=== PATIENT | male | born 1980 | race Caucasian/White ===

== ENCOUNTER → 2019-03-28 | Day surgery (SDC) | payer BC ==
[~2019-03-28] MED LIST: BACITRACIN 50,000 UNIT VIAL ONE; DEXAMETHASONE SOD PHOS INJ 4 MG/ML VIAL ONE; FENTANYL CITRATE/PF 100MCG/2 ML INJ ONE; HYDROMORPHONE 2MG/ML 2 MG/ML ML ONE; INSULIN REGULAR, HUMAN 100 UNIT/1 ML 3ML VIAL ONE; LIDOCAINE HCL 2% LOCAL INJ 5 ML SDV VIAL INJ ONE; LOSARTAN PO; MIDAZOLAM HCL 2 MG/2 ML VIAL ONE; MUPIROCIN 2% OINT 22 GM TUBE ONE; ONDANSETRON HCL INJ 2MG/ML 2ML 2 MG/ML VIAL ONE; OZEMPIC SC; PROMETHAZINE HCL (IM) 25 MG/ML VIAL ONE; PROPOFOL IV EMULSION 10 MG/ML 20 ML VIAL ONE; SEVOFLURANE INHAL SOLN 250 ML PEN BTL ONE; VANCOMYCIN 1GM/NS 250 ML 250 ML ONE; XIGDUO PO
--- OUTSIDE RECORDS SUMMARY | 2019-03-28 08:33 | XMS REPORT | Clinical Summary ---
Author Author [facility] Organization [facility] Address Unknown Phone Unavailable Care Team Providers Care Pmo Analyst Name Role Phone Asked, No Pcp PCP Unavailable Allergies Comments Active Allergy Reactions Severity Noted Date Skin irritation Penicillins Other (See Medium 08/07/2017 Comments) Medications End Date Status Medication Sig Dispensed Refills Start Date Active metFORMIN (GLUCOPHAGE) Take 500 mg 0 500 mg tablet by mouth 2 (two) times a day with meals. Active Problems Problem Noted Date Adhesive capsulitis of left shoulder 09/25/2017 Controlled type 2 diabetes mellitus with complication, without long-term 09/25/2017 current use of insulin Family History Medical History Relation Name Comments No Known Problems Father No Known Problems Mother Relation Name Status Comments Father Mother Social History Date Tobacco Use Types Packs/Day Years Used Started: 08/07/1997 Current Every Day Smoker Cigarettes 0.5 Smokeless Tobacco: Never Used Alcohol Use Drinks/Week oz/Week Comments No Sex Assigned at Date Recorded Not on file Industry Job Start Date Occupation Not on file Not on file Not on file Travel End Travel History Travel Start No recent travel history available. Last Filed Vital Signs Not on file Plan of Treatment Health Maintenance Due Date Last Done Comments DIABETIC RETINAL EYE EXAM 1979 DIABETIC FOOT EXAM 1989 URINE MICROALBUMIN 1989 INFLUENZA VACCINE 03/27/2019 Results Not on fileafter 03/27/2018 Insurance Type Payer Benefit Subscriber ID Effective Phone Address Plan / Dates Group PPO BCBS DENIS xxxxxxxxxxxx [id number] TOMMY CROSS resent Advance Directives Patient has advance care planning documents on file. For more information, dennis odonnell contact: Karel [address] [place] [address]
[2019-03-28 09:46] LABS: BASOPHILS # (AUTO) 0.1 (0.0-0.1); BASOPHILS % 0.5 % (0.0-1.0); EOSINOPHILS # (AUTO) 0.3 (0.0-0.4); EOSINOPHILS % 2.6 % (0.0-6.0); HEMATOCRIT 46.1 % (38.2-49.6); HEMOGLOBIN 15.9 g/dL (14.0-18.0); LYMPHOCYTES # (AUTO) 2.4 (1.0-3.2); MEAN CORPUSCULAR HGB CONC 34.5 g/dL (31-35); MEAN CORPUSCULAR VOLUME 81.3 fL (81-99); MONOCYTES # (AUTO) 0.9 (0.2-0.8); MONOCYTES % 8.4 % (4.4-11.3); NEUTROPHILS # (AUTO) 7.2 (2.1-6.9); NEUTROPHILS % 66.1 % (38.7-80.0); PLATELET COUNT 266 x10e3/uL (140-360); RED BLOOD COUNT 5.67 x10e6/uL (4.3-5.7); RED CELL DISTRIBUTION WIDTH 13.2 % (11.7-14.4)
[2019-03-28 10:07] LABS: ALBUMIN/GLOBULIN RATIO 0.8 (0.8-2.0); ANION GAP 17.8 mmol/L (8-16); CALCIUM 10.5 mg/dL (8.4-10.2); CREATININE, SERUM 1.38 mg/dL (0.72-1.25); POTASSIUM 3.8 mmol/L (3.5-5.1)
--- NOTE | 2019-03-28 10:08 | Diagnostic Imaging Report ---
EXAMINATION: CHEST 2 VIEWS INDICATION: Pre-operative COMPARISON: None FINDINGS: LINES/TUBES:None LUNGS:The lungs are well-inflated. No focal consolidation or pulmonary edema. PLEURA:No pleural effusion or pneumothorax. MEDIASTINUM:The cardiomediastinal silhouette appears normal in size and shape. BONES/SOFT TISSUES:No acute osseous injury. ABDOMEN:No free air under the diaphragm. IMPRESSION: No focal pneumonia or pulmonary edema. Signed by: Ashley Jeong MD on 03/28/2019 10:05 AM
--- NOTE | 2019-03-28 15:50 | Operative Report ---
DATE OF PROCEDURE: 03/28/2019 SURGEON: Juan J Alexandre DPM ROOM NUMBER: [facility] PREOPERATIVE DIAGNOSIS: Osteomyelitis of the right foot 1st metatarsal with chronic wound plantar aspect of the foot. POSTOPERATIVE DIAGNOSIS: Osteomyelitis of the right foot 1st metatarsal with chronic wound plantar aspect of the foot. TITLE OF THE OPERATION: Debridement of the right foot with excision of the 1st metatarsal head of the right foot. The deep wound plantar aspect was debrided and packed with human tissue allograft as well. PROCEDURE IN DETAIL: The patient was taken to the operating room in a mildly sedated state, placed on the operating table in supine position. Following induction of general anesthetic, the right lower extremity was elevated to 60 degrees to exsanguinate before inflating the pneumatic tourniquet to 350 mmHg to create good hemostasis. Right lower extremity was placed on the operating table prior to performing following procedure: Procedure #1: Removal of 1st met head and debridement. The linear incision was made overlying the 1st metatarsophalangeal joint, down to bone the head of the 1st metatarsal delivered in the surgical site and resected utilizing oscillating saw back to a level, where there was a proximal healthy bone. The area was then cultured and irrigated with copious amounts of sterile saline solution. Deep closure with 3-0 Vicryl, subcutaneous closure with 4-0 Vicryl, skin closure with 4-0 nylon. Attention was then directed to the plantar aspect of the wound, which was then debrided and packed with human tissue allograft and followed by quarter-inch iodoform gauze. This having been accomplished, the area was then dressed the appropriate mildly compressive dressings and he left the operating room, vital signs are stable, in apparent satisfactory condition, having tolerated both anesthetic and the procedure very well. TASH Yeung/MARYCRUZ /[id number]
--- NOTE | 2019-03-28 18:21 | Diagnostic Imaging Report ---
A single frontal view of the chest. HISTORY: PICC placement COMPARISON: None available. DISCUSSION: Portable technique, limits sensitivity of the exam. Soft tissue attenuation partially limits sensitivity of the exam. Tubes/Lines: Interval placement of a right approach PICC line, the tip projects in the region of the distal superior vena cava. Lungs and pleura: Mildly increased bibasilar atelectasis. Heart and mediastinum: Appears unchanged. Bones and soft tissues: Appears unchanged. IMPRESSION: Status post right upper extremity PICC line placement. Signed by: Dr. Twin Gonsalez D.O., M.M.M. on 03/28/2019 6:18 PM
[2019-03-28 19:00] VITALS: BP 130/79
== END | disposition home or self-care (01) ==
LOC: OR 08:30
PROVIDERS: ATTEND Podiatrist Foot Surgery
DX: M86.171 Other acute osteomyelitis, right ankle and foot (principal); S91.301A Unspecified open wound, right foot, initial encounter; I10 Essential (primary) hypertension; E11.9 Type 2 diabetes mellitus without complications; X58.XXXA Exposure to other specified factors, initial encounter; Z88.0 Allergy status to penicillin; Z79.84 Long term (current) use of oral hypoglycemic drugs
CPT/HCPCS: 28111; 36415; 36569; 71045; 71046; 74470; 76000; 80053; 82948; 85025; 87071; 87075; 87205; 88305; 88311; 93005; 97597; J1100; J1170; J2001; J2250; J2405; J2550; J2704; J3010; J3370; 88304; J1817; Q4100

== ENCOUNTER → 2019-04-03 | Outpatient (CLI) | payer BC ==
[~2019-04-03] MED LIST changes: -BACITRACIN 50,000 UNIT VIAL ONE; -DEXAMETHASONE SOD PHOS INJ 4 MG/ML VIAL ONE; -FENTANYL CITRATE/PF 100MCG/2 ML INJ ONE; -HYDROMORPHONE 2MG/ML 2 MG/ML ML ONE; -INSULIN REGULAR, HUMAN 100 UNIT/1 ML 3ML VIAL ONE; -LIDOCAINE HCL 2% LOCAL INJ 5 ML SDV VIAL INJ ONE; -MIDAZOLAM HCL 2 MG/2 ML VIAL ONE; -MUPIROCIN 2% OINT 22 GM TUBE ONE; -ONDANSETRON HCL INJ 2MG/ML 2ML 2 MG/ML VIAL ONE; -PROMETHAZINE HCL (IM) 25 MG/ML VIAL ONE; -PROPOFOL IV EMULSION 10 MG/ML 20 ML VIAL ONE; -SEVOFLURANE INHAL SOLN 250 ML PEN BTL ONE; -VANCOMYCIN 1GM/NS 250 ML 250 ML ONE
== END ==
LOC: WCC 15:19
PROVIDERS: ATTEND Podiatrist Foot Surgery
DX: E11.621 Type 2 diabetes mellitus with foot ulcer (principal); L97.416 Non-pressure chronic ulcer of right heel and midfoot with bone involvement without evidence of necrosis; I10 Essential (primary) hypertension

== ENCOUNTER → 2019-04-04 | Outpatient (CLI) | payer BC | LOC: WCC 14:48 | PROVIDERS: ATTEND Podiatrist Foot Surgery | DX: E11.621 Type 2 diabetes mellitus with foot ulcer (principal); L97.416 Non-pressure chronic ulcer of right heel and midfoot with bone involvement without evidence of necrosis; I10 Essential (primary) hypertension ==

== ENCOUNTER → 2019-04-07 | Outpatient (CLI) | payer BC | LOC: WCC 12:47 | PROVIDERS: ATTEND Podiatrist Foot Surgery | DX: E11.621 Type 2 diabetes mellitus with foot ulcer (principal); L97.416 Non-pressure chronic ulcer of right heel and midfoot with bone involvement without evidence of necrosis; I10 Essential (primary) hypertension ==

== ENCOUNTER → 2019-04-09 | Outpatient (CLI) | payer BC | LOC: WCC 13:26 | PROVIDERS: ATTEND Podiatrist Foot Surgery | DX: E11.621 Type 2 diabetes mellitus with foot ulcer (principal); L97.416 Non-pressure chronic ulcer of right heel and midfoot with bone involvement without evidence of necrosis; I10 Essential (primary) hypertension ==

== ENCOUNTER → 2019-04-11 | Outpatient (CLI) | payer BC | LOC: WCC 13:42 | PROVIDERS: ATTEND Podiatrist Foot & Ankle Surgery | DX: E11.621 Type 2 diabetes mellitus with foot ulcer (principal); L97.416 Non-pressure chronic ulcer of right heel and midfoot with bone involvement without evidence of necrosis; I10 Essential (primary) hypertension ==

== ENCOUNTER → 2019-04-14 | Outpatient (CLI) | payer BC | LOC: WCC 15:00 | PROVIDERS: ATTEND Podiatrist Foot Surgery | DX: E11.621 Type 2 diabetes mellitus with foot ulcer (principal); L97.416 Non-pressure chronic ulcer of right heel and midfoot with bone involvement without evidence of necrosis; I10 Essential (primary) hypertension ==

== ENCOUNTER → 2019-04-16 | Outpatient (CLI) | payer BC | LOC: WCC 14:35 | PROVIDERS: ATTEND Podiatrist Foot Surgery | DX: E11.621 Type 2 diabetes mellitus with foot ulcer (principal); L97.416 Non-pressure chronic ulcer of right heel and midfoot with bone involvement without evidence of necrosis; I10 Essential (primary) hypertension ==

== ENCOUNTER → 2019-04-18 | Outpatient (CLI) | payer BC | LOC: WCC 14:05 | PROVIDERS: ATTEND Podiatrist Foot Surgery | DX: E11.621 Type 2 diabetes mellitus with foot ulcer (principal); L97.416 Non-pressure chronic ulcer of right heel and midfoot with bone involvement without evidence of necrosis; I10 Essential (primary) hypertension ==

== ENCOUNTER → 2019-04-21 | Outpatient (CLI) | payer BC | LOC: WCC 13:09 | PROVIDERS: ATTEND Podiatrist Foot Surgery | DX: E11.621 Type 2 diabetes mellitus with foot ulcer (principal); L97.416 Non-pressure chronic ulcer of right heel and midfoot with bone involvement without evidence of necrosis; I10 Essential (primary) hypertension ==

== ENCOUNTER → 2019-04-23 | Outpatient (CLI) | payer BC | LOC: WCC 13:35 | PROVIDERS: ATTEND Podiatrist Foot Surgery | DX: E11.621 Type 2 diabetes mellitus with foot ulcer (principal); L97.416 Non-pressure chronic ulcer of right heel and midfoot with bone involvement without evidence of necrosis; I10 Essential (primary) hypertension ==

== ENCOUNTER → 2019-04-25 | Outpatient (CLI) | payer BC | LOC: WCC 13:33 | PROVIDERS: ATTEND Podiatrist Foot Surgery | DX: E11.621 Type 2 diabetes mellitus with foot ulcer (principal); L97.416 Non-pressure chronic ulcer of right heel and midfoot with bone involvement without evidence of necrosis; I10 Essential (primary) hypertension ==

== ENCOUNTER → 2019-04-29 | Outpatient (CLI) | payer BC ==
[~2019-04-29] MED LIST changes: +MINERAL OIL/PETROLAT/GLYCERI 6OZ BTL ONE
== END ==
LOC: WCC 14:11
PROVIDERS: ATTEND Podiatrist Foot Surgery
DX: E11.621 Type 2 diabetes mellitus with foot ulcer (principal); L97.416 Non-pressure chronic ulcer of right heel and midfoot with bone involvement without evidence of necrosis; I10 Essential (primary) hypertension

== ENCOUNTER → 2019-05-02 | Outpatient (CLI) | payer BC ==
[~2019-05-02] MED LIST changes: -MINERAL OIL/PETROLAT/GLYCERI 6OZ BTL ONE
== END ==
LOC: WCC 13:06
PROVIDERS: ATTEND Podiatrist Foot Surgery
DX: E11.621 Type 2 diabetes mellitus with foot ulcer (principal); L97.416 Non-pressure chronic ulcer of right heel and midfoot with bone involvement without evidence of necrosis; I10 Essential (primary) hypertension

== ENCOUNTER → 2019-05-05 | Outpatient (CLI) | payer BC | LOC: WCC 13:32 | PROVIDERS: ATTEND Podiatrist Foot Surgery | DX: E11.621 Type 2 diabetes mellitus with foot ulcer (principal); L97.416 Non-pressure chronic ulcer of right heel and midfoot with bone involvement without evidence of necrosis; I10 Essential (primary) hypertension ==

== ENCOUNTER → 2019-05-09 | Outpatient (CLI) | payer BC | LOC: WCC 15:45 | PROVIDERS: ATTEND Podiatrist Foot Surgery | DX: T81.89XA Other complications of procedures, not elsewhere classified, initial encounter (principal); Y83.8 Other surgical procedures as the cause of abnormal reaction of the patient, or of later complication, without mention of misadventure at the time of the procedure; E11.65 Type 2 diabetes mellitus with hyperglycemia; I10 Essential (primary) hypertension; B96.29 Other Escherichia coli [E. coli] as the cause of diseases classified elsewhere ==

== ENCOUNTER → 2019-05-12 | Outpatient (CLI) | payer BC | LOC: WCC 14:24 | PROVIDERS: ATTEND Podiatrist Foot Surgery | DX: E11.621 Type 2 diabetes mellitus with foot ulcer (principal); L97.416 Non-pressure chronic ulcer of right heel and midfoot with bone involvement without evidence of necrosis; I10 Essential (primary) hypertension ==

== ENCOUNTER → 2019-05-14 | Outpatient (CLI) | payer BC | LOC: WCC 13:56 | PROVIDERS: ATTEND Podiatrist Foot Surgery | DX: E11.621 Type 2 diabetes mellitus with foot ulcer (principal); L97.416 Non-pressure chronic ulcer of right heel and midfoot with bone involvement without evidence of necrosis; I10 Essential (primary) hypertension ==

== ENCOUNTER → 2019-05-16 | Outpatient (CLI) | payer BC | LOC: WCC 10:25 | PROVIDERS: ATTEND Podiatrist Foot Surgery | DX: E11.621 Type 2 diabetes mellitus with foot ulcer (principal); I10 Essential (primary) hypertension; L97.516 Non-pressure chronic ulcer of other part of right foot with bone involvement without evidence of necrosis ==

== ENCOUNTER → 2019-05-21 | Outpatient (CLI) | payer BC | LOC: WCC 13:44 | PROVIDERS: ATTEND Podiatrist Foot Surgery | DX: E11.621 Type 2 diabetes mellitus with foot ulcer (principal); L97.416 Non-pressure chronic ulcer of right heel and midfoot with bone involvement without evidence of necrosis; I10 Essential (primary) hypertension ==

== ENCOUNTER → 2019-05-23 | Outpatient (CLI) | payer BC | LOC: WCC 12:10 | PROVIDERS: ATTEND Family Medicine Adult Medicine | DX: E11.621 Type 2 diabetes mellitus with foot ulcer (principal); L97.416 Non-pressure chronic ulcer of right heel and midfoot with bone involvement without evidence of necrosis; I10 Essential (primary) hypertension ==

== ENCOUNTER → 2019-05-26 | Outpatient (CLI) | payer BC | LOC: WCC 12:51 | PROVIDERS: ATTEND Podiatrist Foot Surgery | DX: E11.621 Type 2 diabetes mellitus with foot ulcer (principal); L97.416 Non-pressure chronic ulcer of right heel and midfoot with bone involvement without evidence of necrosis; I10 Essential (primary) hypertension ==

== ENCOUNTER → 2019-05-28 | Outpatient (CLI) | payer BC | LOC: WCC 13:36 | PROVIDERS: ATTEND Podiatrist Foot Surgery | DX: E11.621 Type 2 diabetes mellitus with foot ulcer (principal); L97.416 Non-pressure chronic ulcer of right heel and midfoot with bone involvement without evidence of necrosis; I10 Essential (primary) hypertension ==

== ENCOUNTER → 2019-05-30 | Outpatient (CLI) | payer BC | LOC: WCC 15:55 | PROVIDERS: ATTEND Podiatrist Foot Surgery | DX: E11.621 Type 2 diabetes mellitus with foot ulcer (principal); L97.416 Non-pressure chronic ulcer of right heel and midfoot with bone involvement without evidence of necrosis; I10 Essential (primary) hypertension ==

== ENCOUNTER → 2019-06-03 | Outpatient (CLI) | payer BC | LOC: WCC 12:30 | PROVIDERS: ATTEND Podiatrist Foot Surgery | DX: E11.621 Type 2 diabetes mellitus with foot ulcer (principal); L97.416 Non-pressure chronic ulcer of right heel and midfoot with bone involvement without evidence of necrosis; I10 Essential (primary) hypertension ==

== ENCOUNTER → 2019-06-05 | Outpatient (CLI) | payer BC | LOC: WCC 12:01 | PROVIDERS: ATTEND Podiatrist Foot Surgery | DX: E11.621 Type 2 diabetes mellitus with foot ulcer (principal); L97.416 Non-pressure chronic ulcer of right heel and midfoot with bone involvement without evidence of necrosis; I10 Essential (primary) hypertension ==

== ENCOUNTER → 2019-06-09 | Outpatient (CLI) | payer BC | LOC: WCC 15:37 | PROVIDERS: ATTEND Podiatrist Foot Surgery | DX: E11.621 Type 2 diabetes mellitus with foot ulcer (principal); M86.172 Other acute osteomyelitis, left ankle and foot; L97.411 Non-pressure chronic ulcer of right heel and midfoot limited to breakdown of skin; R60.0 Localized edema; N28.9 Disorder of kidney and ureter, unspecified; I10 Essential (primary) hypertension; D50.9 Iron deficiency anemia, unspecified; Z01.810 Encounter for preprocedural cardiovascular examination; Z01.811 Encounter for preprocedural respiratory examination ==

== ENCOUNTER → 2019-06-12 | Outpatient (CLI) | payer BC | LOC: WCC 12:52 | PROVIDERS: ATTEND Family Medicine Adult Medicine | DX: E11.621 Type 2 diabetes mellitus with foot ulcer (principal); L97.416 Non-pressure chronic ulcer of right heel and midfoot with bone involvement without evidence of necrosis; I10 Essential (primary) hypertension ==

== ENCOUNTER → 2019-06-17 | Outpatient (CLI) | payer BC | LOC: WCC 14:49 | PROVIDERS: ATTEND Podiatrist Foot Surgery | DX: E11.621 Type 2 diabetes mellitus with foot ulcer (principal); L97.416 Non-pressure chronic ulcer of right heel and midfoot with bone involvement without evidence of necrosis; I10 Essential (primary) hypertension ==

== ENCOUNTER → 2019-06-24 | Outpatient (CLI) | payer BC | LOC: WCC 14:55 | PROVIDERS: ATTEND Family Medicine Adult Medicine | DX: E11.621 Type 2 diabetes mellitus with foot ulcer (principal); L97.416 Non-pressure chronic ulcer of right heel and midfoot with bone involvement without evidence of necrosis; I10 Essential (primary) hypertension ==

== ENCOUNTER → 2025-04-03 | Day surgery (SDC) | payer BC ==
[2025-03-31 10:39] LABS: EST GLOMERULAR FILTRATION RATE 56.0 ML/MIN (>=60)
[~2025-04-03] MED LIST changes: +CLINDAMYCIN PHOS 900MG/ 50ML 50 ML IV ONE; +DEXAMETHASONE SOD PHOS INJ 4 MG/ML SDV ONE; +FENTANYL CITRATE/PF 100MCG/2 ML INJ ONE; +INSULIN SQ; +LACTATED RINGER'S 1,000 ML ONE; +LIDOCAINE HCL 2% LOCAL INJ 5 ML SDV VIAL INJ ONE; +MOUNJARO5 MG/0.5 M SQ; +ONDANSETRON HCL INJ 2MG/ML 2ML 2 MG/ML VIAL ONE; +PROPOFOL IV EMULSION 10 MG/ML 20 ML VIAL ONE
[2025-04-03 12:10] VITALS: TEMP 98
[2025-04-03 13:40] VITALS: BP 147/85; PULSE 83; RESP 16; O2SAT 98
== END | disposition home or self-care (01) ==
LOC: OR 09:49
PROVIDERS: ATTEND Podiatrist Foot Surgery
DX: M20.41 Other hammer toe(s) (acquired), right foot (principal); M21.271 Flexion deformity, right ankle and toes; E11.621 Type 2 diabetes mellitus with foot ulcer; L97.419 Non-pressure chronic ulcer of right heel and midfoot with unspecified severity; I10 Essential (primary) hypertension; E78.5 Hyperlipidemia, unspecified; Z88.0 Allergy status to penicillin; Z01.810 Encounter for preprocedural cardiovascular examination; Z01.812 Encounter for preprocedural laboratory examination; Z79.4 Long term (current) use of insulin; Z79.85 Long-term (current) use of injectable non-insulin antidiabetic drugs
CPT/HCPCS: 15004; 15275; 28285; 28308; 36415 ×2; 80048; 82948; 93005; C1713; J1100; J2003; J2405; J2704; J3010; J7121; Q4152; 76000